=== PATIENT | female | born 1995 | race Caucasian/White ===

== ENCOUNTER 2016-07-22 07:14 | Inpatient (IN) | payer MEDICAID ==
[2016-07-21 07:14] VITALS: BMI 37.3
[~2016-07-22] VITALS: Ht 165.1 cm; Wt 101.6 kg
[~2016-07-22 07:14] MED LIST: ROPIVACAINE 0.2% 20 ML VL EPIDURAL ONE
[2016-07-22] MEDS ORDERED: CEFAZOLIN (LD/OB) 100 ML IV PRN (07:20)
[2016-07-22] MEDS ORDERED: ACETAMINOPHEN 325 MG TAB PO PRN (07:20)
[2016-07-22] MEDS ORDERED: ALU/MAG/SIM 30 ML UDC PO PRN (07:20)
[2016-07-22] MEDS ORDERED: FAMOTIDINE 20 MG INJ IV PRN (07:20)
[2016-07-22] MEDS ORDERED: OXYTOCIN 15 UNITS/250 ML NS 250 ML IV SCH (07:20)
[2016-07-22] MEDS ORDERED: FAMOTIDINE 20 MG TAB PO PRN (07:20)
[2016-07-22] MEDS ORDERED: ONDANSETRON 4 MG VIAL IV PRN (07:20)
[2016-07-22] MEDS ORDERED: TERBUTALINE 1 MG/ML VIAL SUBQ PRN (07:20)
[2016-07-22] MEDS ORDERED: LIDOCAINE 1% BUFFERED 1 ML SYR INTRADERM PRN (07:20)
[2016-07-22] MEDS ORDERED: LIDOCAINE 1% 30 ML PF INFILTRATE ONE (07:20)
[2016-07-22] MEDS ORDERED: PROMETHAZINE 25 MG/ML VIAL IV PRN (07:20)
[2016-07-22] MEDS ORDERED: METOCLOPRAMIDE 10 MG/2 ML VIAL IV PUSH PRN (07:20)
[2016-07-22] MEDS: LACT RINGERS 1,000 ML IV SCH ×4 (07:51→23:49)
[2016-07-22 08:09] VITALS: Ht 165.1 cm; Wt 101.6 kg
[2016-07-22] MEDS: OXYTOCIN 15 UNITS/250 ML NS 250 ML IV SCH (08:39)
[2016-07-22] MEDS: MORPHINE 2 MG/ML SYR IV PRN ×2 (11:07→21:18)
[2016-07-22] MEDS ORDERED: LABETALOL 100 MG/20 ML VIAL IV PRN (18:55)
[2016-07-22] MEDS ORDERED: ROPIV/FENT 0.2%-2MCG/ML 100 ML EPIDURAL ONE (23:10)
[2016-07-22] MEDS ORDERED: FENTANYL 100 MCG/2 ML AMP ONE (23:11)
[2016-07-23] VITALS (12 sets, daily range): BP systolic 129–151; RESP 16–20; TEMP 97.7–98.2
[2016-07-23] MEDS ORDERED: SODIUM CHLORIDE 0.9% 500 ML IV PRN (00:05)
[2016-07-23] MEDS ORDERED: ROPIV/FENT 0.2%-2MCG/ML 100 ML EPIDURAL SCH (00:05)
[2016-07-23] MEDS ORDERED: LACT RINGERS 500 ML IV PRN (00:05)
[2016-07-23] MEDS ORDERED: FENTANYL 100 MCG/2 ML AMP EPIDURAL ONE (00:05)
[2016-07-23] MEDS ORDERED: LACT RINGERS 500 ML IV ONE (00:05)
[2016-07-23] MEDS: OXYTOCIN 15 UNITS/250 ML NS 250 ML IV SCH (00:42)
[2016-07-23] MEDS ORDERED: ZOLPIDEM 5 MG TAB PO PRN (11:10)
[2016-07-23] MEDS ORDERED: DERMOPLAST SPRAY TOPICAL PRN (11:10)
[2016-07-23] MEDS ORDERED: OXYTOCIN 15 UNITS/250 ML NS 250 ML IV SCH (11:10)
[2016-07-23] MEDS ORDERED: SALINE FLUSH 10 ML FLUSH PRN (11:10)
[2016-07-23] MEDS ORDERED: ASTRINGENT MED PADS 40'S TOPICAL PRN (11:10)
[2016-07-23] MEDS ORDERED: MAG HYDROX 30 ML UDC PO PRN (11:10)
[2016-07-23] MEDS ORDERED: TDaP 0.5 ML VIAL IM.VACC ONE (11:10)
[2016-07-23] MEDS ORDERED: BISACODYL 10 MG SUPP RECTAL PRN (11:10)
[2016-07-23] MEDS ORDERED: SODIUM CHLORIDE 0.9% FLUSH BAG 500 ML IV PRN (11:10)
[2016-07-23] MEDS: **ONLY ANESTEHSIA MAY ORDER OPIATES WHILE ON EPIDURAL XX SCH ×2 (12:52→20:04)
[2016-07-23] MEDS: MEASLES,MUMPS,RUBELLA VAC SUBQ.VACC ONE (12:53)
[2016-07-23] MEDS: Ibuprofen 600 MG TAB PO SCH ×3 (13:02→23:48)
[2016-07-23] MEDS: MISOPROSTOL 200 MCG TAB PO SCH ×2 (13:02→17:59)
[2016-07-23] MEDS: SALINE FLUSH 10 ML FLUSH SCH (20:04)
[2016-07-23] MEDS: DOCUSATE SOD 100 MG CAP PO SCH (21:54)
[2016-07-24] VITALS (9 sets, daily range): BP systolic 130–141; RESP 16–24; TEMP 97.5–98.6
[2016-07-24] MEDS: Ibuprofen 600 MG TAB PO SCH ×3 (06:10→17:45)
[2016-07-24] MEDS ORDERED: NEB-ALBUTEROL 2.5 MG/3 ML INH PRN (08:05)
[2016-07-24] MEDS: DOCUSATE SOD 100 MG CAP PO SCH ×2 (08:57→21:45)
[2016-07-24] MEDS: PRENATAL VITAMIN TAB PO SCH (08:57)
[2016-07-24] MEDS ORDERED: TDaP 0.5 ML VIAL IM.VACC ONE (16:09)
[2016-07-24] MEDS: **ONLY ANESTEHSIA MAY ORDER OPIATES WHILE ON EPIDURAL XX SCH (19:29)
[2016-07-24] MEDS: SALINE FLUSH 10 ML FLUSH SCH (19:29)
[2016-07-25] MEDS: Ibuprofen 600 MG TAB PO SCH ×3 (00:25→11:42)
[2016-07-25 05:38] VITALS: BP_SYST 132; RESP 16; TEMP 97.7
[2016-07-25] MEDS: **ONLY ANESTEHSIA MAY ORDER OPIATES WHILE ON EPIDURAL XX SCH (08:00)
[2016-07-25] MEDS: SALINE FLUSH 10 ML FLUSH SCH (08:00)
[2016-07-25] MEDS: DOCUSATE SOD 100 MG CAP PO SCH (08:49)
[2016-07-25] MEDS: PRENATAL VITAMIN TAB PO SCH (08:49)
[2016-07-25 09:20] VITALS: BP_SYST 136; RESP 18; TEMP 98.1
[2016-07-25] MEDS ORDERED: MEASLES,MUMPS,RUBELLA VAC SUBQ.VACC ONE (11:36)
[2016-07-25] MEDS: MEASLES,MUMPS,RUBELLA VAC SUBQ.VACC ONE (11:45)
[2016-07-25 13:10] VITALS: BP_SYST 136; RESP 18; TEMP 98.1
== END 2016-07-25 15:09 | disposition home or self-care (01) | DRG 775 ==
LOC: LD 07:14 → OB 07-23 15:29
PROVIDERS: ADMIT Obstetrics & Gynecology; ATTEND Obstetrics & Gynecology
PROC: 3E033VJ Introduction of Other Hormone into Peripheral Vein, Percutaneous Approach (ICD-10-PCS; principal; 2016-07-22)
PROC: 10E0XZZ Delivery of Products of Conception, External Approach (ICD-10-PCS; 2016-07-23)
PROC: 0W8NXZZ Division of Female Perineum, External Approach (ICD-10-PCS; 2016-07-23)
PROC: 10907ZC Drainage of Amniotic Fluid, Therapeutic from Products of Conception, Via Natural or Artificial Opening (ICD-10-PCS; 2016-07-23)
DX: O14.04 Mild to moderate pre-eclampsia, complicating childbirth (principal); J45.20 Mild intermittent asthma, uncomplicated; Z3A.37 37 weeks gestation of pregnancy; Z37.0 Single live birth; O75.89 Other specified complications of labor and delivery; Z3A.00 Weeks of gestation of pregnancy not specified
CPT/HCPCS: 80053; 82803; 85014; 85018; 85025; 86850; 86900; 86901; 90707; 94799; 96372